=== PATIENT | male | born 1985 | race Caucasian/White ===

== ENCOUNTER 2017-10-20 06:04 | Emergency (ER) | payer SELFPAY ==
[~2017-10-20] VITALS: Ht 188 cm; Wt 137.5 kg
[2017-10-20 06:11] VITALS: BP 139/93; PULSE 82; RESP 17; TEMP 98.4; O2SAT 97
--- NOTE | 2017-10-20 06:23 | PD ---
HPI Chief Complaint: Injury Time Seen by Provider: 06:17 Travel History International Travel<30 days: No Contact w/Intl Traveler<30days: No Traveled to known affect area: No History of Present Illness HPI Patient is a 31-year-old male presenting to to the emergency depart for evaluation of right hand pain. Patient states he punched a wall 9 days ago. He states it was feeling better however for the last 2 days it has been more swollen and painful. He denies any redness, fever, chills. He has his arm in a sling. He denies any new activities. Patient rates his pain a 7 out of 10, has been taking Motrin or Tylenol. He has no other complaints at this time. Symptom onset was sudden, symptoms are moderate in nature. There are no alleviating factors. PFSH Past Medical History Diabetes: Yes (Gliprizide) Patient Takes Glucophage: Yes Tetanus Vaccination: < 5 Years Influenza Vaccination: No Past Surgical History Surgical History: No Previous Surgery Social History Alcohol Use: No Tobacco Use: No Substance Use: No Allergies-Medications (Allergen,Severity, Reaction): Coded Allergies: No Known Drug Allergies (Verified Allergy, Unknown, 10/20/17) Review of Systems Except as stated in HPI: all other systems reviewed are Neg Musculoskeletal: Positive: Myalgias, Arthralgias, Edema, Pain Physical Exam Narrative GENERAL: Overweight, well-developed, alert male. Presenting in no acute distress. SKIN: Warm and dry. HEAD: Normocephalic. EYES: No scleral icterus. No injection or drainage. NECK: Supple, trachea midline. No JVD or lymphadenopathy. CARDIOVASCULAR: Regular rate and rhythm without murmurs, gallops, or rubs. RESPIRATORY: Breath sounds equal bilaterally. No accessory muscle use. GASTROINTESTINAL: Abdomen soft, non-tender, nondistended. MUSCULOSKELETAL: No cyanosis, or edema. No erythema or deformity noted. Tenderness to palpation on the dorsal aspect of the right hand over the third, fourth, fifth MCP. BACK: Nontender without obvious deformity. No CVA tenderness. Data Data Last Documented VS Vital Signs Date Time Temp Pulse Resp B/P (MAP) Pulse Ox O2 Delivery O2 Flow Rate FiO2 10/20/17 06:11 98.4 82 17 139/93 (108) 97 Room Air Orders Orders Hand, Complete ([id number]) (10/20/17 ) Ketorolac Inj (Toradol Inj) (10/20/17 07:00) Orphenadrine Inj (Norflex Inj) (10/20/17 07:00) Ed Discharge Order (10/20/17 07:40) [facility] Medical Decision Making Medical Screen Exam Complete: Yes Emergency Medical Condition: Yes Interpretation(s) Last Impressions Hand X-Ray 10/20/17 0000 Signed Impressions: Service Date/Time: Friday, October 20, 2017 06:23 - CONCLUSION: Unremarkable examination of the right hand. Ari Varner MD Vital Signs Date Time Temp Pulse Resp B/P (MAP) Pulse Ox O2 Delivery O2 Flow Rate FiO2 10/20/17 06:11 98.4 82 17 139/93 (108) 97 Room Air Differential Diagnosis Fracture versus sprain versus strain versus contusion versus other Narrative Course Patient is well-appearing 31-year-old male presenting with right hand pain after punching a wall 9 days ago. Patient's vital signs are stable, x-ray ordered and pending. X-rays negative. Patient was given Toradol and Norflex. He was encouraged to follow-up with a primary doctor. He is encouraged to trial conservative management. Patient has not been using this hand since the injury initially occurred, he has had his hand in a sling. Pain may be secondary to muscle tightness. There was no sign of infection, no erythema. There was a scab noted over the right third knuckle which is healing. Patient verbalized understanding of these instructions. Patient stable for discharge. Diagnosis Primary Impression: Hand pain Qualified Codes: M79.641 - Pain in right hand Referrals: Primary Care Physician Patient Instructions: General Instructions, Hand Sprain (ED) Additional Instructions: Take medication as directed Apply warm compress to affected area, continue range of motion exercises, avoid favoring extremity. Return to emergency department or follow-up with your primary doctor if no improvement with conservative management in the next 24-48 hours Med/Other Pt SpecificInfo: Prescription(s) given Scripts Cyclobenzaprine (Flexeril) 10 Mg Tab 10 MG PO TID Y for MUSCLE SPASM, #30 TAB 0 Refills Prov: Leena Kruger 10/20/17 Ketorolac (Ketorolac) 10 Mg Tab 10 MG PO TID Y for Pain Management, #30 TAB 0 Refills Prov: Leena Kruger 10/20/17 Disposition: 01 DISCHARGE HOME Condition: Stable Leena Kruger October 20, 2017 06:23
--- NOTE | 2017-10-20 06:47 | RADRPT ---
EXAM DATE/TIME: 10/20/2017 06:23 [place] COMPARISON: No previous studies available for comparison. INDICATIONS : Right hand pain from punching a wall. MEDICAL HISTORY : None. SURGICAL HISTORY : None. ENCOUNTER: Initial ACUITY: 1 day PAIN SCORE: 8/10 LOCATION: Right hand FINDINGS: Three view examination of the right hand demonstrates no soft tissue swelling, dislocation, or fractu re. The carpal bones appear intact. The interphalangeal and metacarpophalangeal joints are intact. Bony mineralization is normal. CONCLUSION: Unremarkable examination of the right hand. Ari Varner MD on October 20, 2017 at 6:44 Board Certified Radiologist. This report was verified electronically.
[2017-10-20] MEDS ORDERED: KETOROLAC TROMETHAMINE 60 MG/2 ML (IM) VIAL IM ONE (07:00)
[2017-10-20] MEDS ORDERED: ORPHENADRINE INJ 60 MG/2 ML AMP IM ONE (07:00)
[2017-10-20] MEDS ORDERED: CYCL10TA PO (07:43)
[2017-10-20] MEDS ORDERED: KETO10 PO (07:43)
== END 2017-10-20 07:48 | disposition home or self-care (01) ==
LOC: NEPD 06:04
DX: M79.641 Pain in right hand (principal)
CPT/HCPCS: 73130; 96372; 99283; J1885; J2360